=== PATIENT | female | born 2000 | race Caucasian/White ===

== ENCOUNTER 2023-01-29 14:33 | Emergency (ER) | payer OTHER, SELFPAY ==
[2023-01-29 14:53] VITALS: BP 116/76; PULSE 79; RESP 18; TEMP 37.1; O2SAT 100
--- NOTE | 2023-01-29 17:49 | ED.SKABFB ---
HPI - Skin/Abscess/Foreign Bdy General Chief complaint: Skin/Abscess/Foreign Body Stated complaint: cyst on tailbone Time Seen by Provider: 01/29/23 17:48 History of Present Illness HPI narrative: Patient is a 22-year-old female with history of psoriasis, recurrent abscesses, Crohn's disease diagnosed by endoscopic biopsy on wagoner here today with a abscess over her tailbone. She notes that it has been present for the last week. It is worsening, she has been using hot compresses and Tylenol with minimal relief of her symptoms. She does note that she was seen for a colonoscopy on Friday did test and see if she additionally had celiac disease. She denies bringing up this lesion with her GI doctor who performed a colonoscopy on Friday. She notes a distant history of some perianal Crohn's disease 2-3 years ago, denies any lesions or drainage in that area at this time. No pain with defecation. No fever or chills. Crohn's has been well controlled for many years. Related Data Home Medications Medication Instructions Recorded Confirmed adalimumab 40 mg/0.4 mL See Rx Instructions subcut .COMPLEX 05/03/22 05/03/22 subcutaneous syringe kit ([facility] bupropion HCl 300 mg 24 hr tablet, 300 mg PO QAM 05/03/22 05/03/22 extended release (Wellbutrin XL) escitalopram oxalate 10 mg tablet 10 mg PO DAILY 05/03/22 05/03/22 (Lexapro) levonorgestrel 21 mcg/24 hours (8 1 device intrauterine ONCE 05/03/22 05/03/22 yrs) 52 mg intrauterine device (Mirena) Allergies Allergy/AdvReac Type Severity Reaction Status Date / Time No Known Allergies Allergy Verified 05/03/22 08:00 Review of Systems Review of Systems: CONSTITUTIONAL: Denies fever, chills, or sweats. EYES: Denies visual changes, redness, or discharge. ENT: Denies rhinorrhea, congestion, sore throat, or otalgia. CARDIOVASCULAR: Denies chest pain, palpitations, or edema. RESPIRATORY: Denies cough or dyspnea. GASTROINTESTINAL: Denies abdominal pain, nausea, vomiting, or diarrhea. GENITOURINARY: Denies dysuria or hematuria. SKIN: Denies rash or itching. Abscess over tailbone MUSCULOSKELETAL: Denies back pain, joint pain, or myalgia. NEUROLOGIC: Denies headache, numbness, or weakness. [facility] Past Medical History Medical History (Updated 01/29/23 @ 19:33 by Alisia Courntey MD) Anxiety and depression Crohn disease Encounter for insertion of mirena IUD 07/10/2018 Sexually transmissible disease Surgical History Surgical History History of colonoscopy (~2019) normal Family History Family History Grandparent Diabetes mellitus maternal grandfather Breast cancer maternal grandmother Social History Social History (Updated 05/03/22 @ 08:04 by Balbina Morris MA) Smoking status: Never smoker Alcohol intake: current Alcohol use details: rarely Substance use: never Substance use type: does not use Living arrangements: with family Occupation/Education: occupation Gender identity (if verbalized by the patient): Female Sexual Orientation (if Verbalized by the Patient): Straight or Heterosexual Exam Narrative: GENERAL: Well-appearing, well-nourished, and in no acute distress. HEAD: Normocephalic, atraumatic. EYES: PERRLA and EOMI. ENT: Nares clear. Mucous membranes moist. NECK: Supple. CHEST: Clear to auscultation. No respiratory distress. HEART: Regular rate and rhythm. Normal peripheral pulses. ABDOMEN: Soft, nontender, nondistended. RECTAL: 2cm swelling at the superior aspect of the gluteal fold consistent with pilonidal abscess. Tender to touch, no perianal inflammation or skin changes. EXTREMITIES: Normal range of motion. No edema. SKIN: Warm, dry, no rash. Abscess as above. NEURO: No focal deficits. Alert and oriented x3. Course Course Emergency Course: Chart review performed. No prior ED visits here in our sys
[2023-01-29] MEDS: LIDO 1%/EPINEPHRINE 1:100,000 20 ML VIAL 10 ML INFILTRATE (18:26)
[2023-01-29 20:09] VITALS: BP 120/66; PULSE 74; RESP 19; O2SAT 99
== END 2023-01-29 20:10 | disposition home or self-care (01) ==
PROVIDERS: Emergency Provider Student in an Organized Health Care Education/Training Program; PCP Nurse Practitioner Family
DX: L05.01 Pilonidal cyst with abscess (principal); K50.90 Crohn's disease, unspecified, without complications; L40.9 Psoriasis, unspecified; F41.9 Anxiety disorder, unspecified; F32.A Depression, unspecified; Z97.5 Presence of (intrauterine) contraceptive device
CPT/HCPCS: 10061; 10080; 99283